=== PATIENT | female | born 1935 | race Caucasian/White ===

== ENCOUNTER 2023-12-02 20:34 | Emergency (ER) | payer MEDICARE, MEDICAID ==
[~2023-12-02] VITALS: Ht 147.3 cm; Wt 68.0 kg
[2023-12-02 21:10] VITALS: BP 170/75; PULSE 77; RESP 19; TEMP 98; O2SAT 99
[2023-12-02 22:53] LABS: FLU A ANTIGEN negative (NEGATIVE); FLU B ANTIGEN NEGATIVE (NEGATIVE)
[2023-12-02] MEDS: KETOROLAC 30 MG/ML VIAL IM ONE (23:22)
[2023-12-02] MEDS: ALBUTEROL SULFATE/IPRATROPIU 3 ML SOL IH ONE (23:48)
[2023-12-02 23:49] VITALS: PULSE 78; RESP 16; O2SAT 98
[2023-12-03] MEDS ORDERED: ALBU0.0912 IH (00:02)
[2023-12-03] MEDS ORDERED: AZIT250T4 PO (00:02)
[2023-12-03 00:12] VITALS: BP 130/68; PULSE 72; RESP 16; TEMP 98; O2SAT 98
== END 2023-12-03 00:12 | disposition home or self-care (01) ==
LOC: MED 20:34
DX: J20.9 Acute bronchitis, unspecified (principal); Z20.822 Contact with and (suspected) exposure to COVID-19; I10 Essential (primary) hypertension; Z79.899 Other long term (current) drug therapy
CPT/HCPCS: 71045; 87426; 87804; 94640; 96372; 99284; J1885